=== PATIENT | female | born 2000 | race Caucasian/White ===

== ENCOUNTER 2023-10-08 12:35 | Emergency (ER) | payer SELFPAY ==
[~2023-10-08] VITALS: Ht 162.6 cm; Wt 75.7 kg
[2023-10-08 12:54] VITALS: BP 125/73; PULSE 91; RESP 16; TEMP 98.5; O2SAT 100
[2023-10-08] MEDS ORDERED: IBUP-2213 PO (13:17)
== END 2023-10-08 13:33 | disposition home or self-care (01) ==
LOC: MED 12:35
DX: S80.11XA Contusion of right lower leg, initial encounter (principal); R03.0 Elevated blood-pressure reading, without diagnosis of hypertension; X58.XXXA Exposure to other specified factors, initial encounter; Y93.89 Activity, other specified; Y92.89 Other specified places as the place of occurrence of the external cause; Y99.8 Other external cause status
CPT/HCPCS: 99282